=== PATIENT | female | born 1975 | race Caucasian/White ===

== ENCOUNTER 2022-05-28 14:32 | Outpatient (CLI) | payer BC | END 2022-05-28 14:33 | disposition home or self-care (01) | LOC: CSHMRI 14:32 | PROVIDERS: ATTEND Family Medicine | DX: M54.16 Radiculopathy, lumbar region (principal); M47.816 Spondylosis without myelopathy or radiculopathy, lumbar region; M47.817 Spondylosis without myelopathy or radiculopathy, lumbosacral region | CPT/HCPCS: 72148 ==

== ENCOUNTER 2025-06-15 09:40 | Outpatient (CLI) | payer BC | END 2025-06-15 09:41 | disposition home or self-care (01) | LOC: CSHCT 09:40 | PROVIDERS: ATTEND Nurse Practitioner Family | DX: R19.04 Left lower quadrant abdominal swelling, mass and lump (principal); K65.4 Sclerosing mesenteritis; N83.202 Unspecified ovarian cyst, left side | CPT/HCPCS: 74176 ==